=== PATIENT | male | born 1975 | race Caucasian/White ===

== ENCOUNTER 2019-05-03 15:55 | Inpatient (IN) | payer BC ==
[~2019-05-03] VITALS: Ht 175.3 cm; Wt 101.6 kg
[2019-05-03 16:14] VITALS: BP 139/90
[2019-05-03] MEDS ORDERED: VANCOMYCIN PER PHARMACY MC PRN (17:00)
[2019-05-03] MEDS ORDERED: PIP/TAZO PER PHARMACY MC PRN (17:00)
[2019-05-03] MEDS ORDERED: CLIN300C8 PO (17:04)
[2019-05-03] MEDS ORDERED: ONDANSETRON PF 4 MG/2 ML VIAL. IVP PRN (17:15)
[2019-05-03 17:23] LABS: BASO # 0.1 x10^3/uL (0.0-0.2); BASO % 1 % (0-3); EOS % 0 % (0-3); HEMATOCRIT 46.4 % (39.0-53.0); HEMOGLOBIN 15.7 g/dL (13.0-17.5); LYMPH # 3.4 x10^3/uL (1.0-4.8); LYMPH % 28 % (24-48); MEAN CORPUSCULAR HEMOGLOBIN 31 pg (25-35); MEAN CORPUSCULAR HGB CONC 34 g/dL (31-37); MEAN CORPUSCULAR VOLUME 91 fL (79-100); MONO % 8 % (0-9); NEUT # 7.5 x10^3uL (1.8-7.7); NEUT % 62 % (31-73); PLATELET COUNT 243 x10^3/uL (140-400); RED BLOOD COUNT 5.09 x10^6/uL (4.30-5.70); RED CELL DISTRIBUTION WIDTH 13.2 % (11.5-14.5)
[2019-05-03 17:24] LABS: ALBUMIN 3.8 g/dL (3.4-5.0); ALBUMIN/GLOBULIN RATIO 1.2 (1.0-1.7); CALCIUM 9.9 mg/dL (8.5-10.1); CREATININE 0.9 mg/dL (0.7-1.3); GFR 90.8; POTASSIUM 3.5 mmol/L (3.5-5.1); TOTAL BILIRUBIN 0.3 mg/dL (0.2-1.0)
[2019-05-03] MEDS ORDERED: VANCOMYCIN 2 GM in IV NORMAL SALINE 500ML 500 ML IV ONE (17:30)
[2019-05-03] MEDS: ACETAMINOPHEN 325 MG TABLET PO PRN (18:03)
[2019-05-03 19:41] VITALS: BP 148/92
[2019-05-03] MEDS: MORPHINE SULFATE 4 MG/ML DISP.SYRIN. IV PRN (21:23)
[2019-05-03] MEDS: PIPERACILLIN/TAZOBACTAM 4.5 GM in IV NORMAL SALINE 50ML 50 ML IV SCH (21:23)
[2019-05-03] MEDS: LACTOBACILLUS RHAMNOSUS GG 1 CAPSULE. PO SCH (21:27)
[2019-05-03] MEDS ORDERED: DEXTROSE 50% 25 GM / 50ML DISP.SYRIN. IV PRN (21:45)
[2019-05-03 22:37] VITALS: BP 141/76
[2019-05-03 23:00] VITALS: BP 145/75
[2019-05-04] MEDS: VANCOMYCIN 1.5 GM in IV NORMAL SALINE 500ML 500 ML IV SCH ×3 (01:07→18:27)
[2019-05-04] MEDS: PIPERACILLIN/TAZOBACTAM 4.5 GM in IV NORMAL SALINE 50ML 50 ML IV SCH ×3 (05:00→22:14)
[2019-05-04] MEDS: MORPHINE SULFATE 4 MG/ML DISP.SYRIN. IV PRN ×2 (05:00→14:44)
[2019-05-04 06:28] VITALS: BP 137/84
[2019-05-04] MEDS ORDERED: INSULIN LISPRO 300 UNITS/3 ML VIAL. SQ SCH (08:00)
[2019-05-04] MEDS: LACTOBACILLUS RHAMNOSUS GG 1 CAPSULE. PO SCH ×2 (08:40→20:15)
[2019-05-04 09:21] LABS: BASO # 0.1 x10^3/uL (0.0-0.2); BASO % 1 % (0-3); EOS % 0 % (0-3); HEMATOCRIT 46.3 % (39.0-53.0); HEMOGLOBIN 15.5 g/dL (13.0-17.5); LYMPH # 3.2 x10^3/uL (1.0-4.8); LYMPH % 30 % (24-48); MEAN CORPUSCULAR HEMOGLOBIN 31 pg (25-35); MEAN CORPUSCULAR HGB CONC 33 g/dL (31-37); MEAN CORPUSCULAR VOLUME 92 fL (79-100); MONO # 0.7 x10^3/uL (0.0-1.1); MONO % 6 % (0-9); NEUT # 6.9 x10^3uL (1.8-7.7); NEUT % 63 % (31-73); PLATELET COUNT 240 x10^3/uL (140-400); RED BLOOD COUNT 5.02 x10^6/uL (4.30-5.70); RED CELL DISTRIBUTION WIDTH 13.8 % (11.5-14.5); WHITE BLOOD COUNT 10.9 x10^3/uL (4.0-11.0)
[2019-05-04 09:29] LABS: ALBUMIN 3.3 g/dL (3.4-5.0); ALBUMIN/GLOBULIN RATIO 1.1 (1.0-1.7); CALCIUM 9.1 mg/dL (8.5-10.1); CREATININE 0.9 mg/dL (0.7-1.3); GFR 90.8; POTASSIUM 3.9 mmol/L (3.5-5.1); TOTAL BILIRUBIN 0.4 mg/dL (0.2-1.0); TOTAL PROTEIN 6.2 g/dL (6.4-8.2)
[2019-05-04] MEDS: NICOTINE 21MG PATCH. TD SCH (09:31)
[2019-05-04 11:23] VITALS: BP 137/93
[2019-05-04] MEDS ORDERED: DEXTROSE 50% 25 GM / 50ML DISP.SYRIN. IV PRN (13:00)
--- NOTE | 2019-05-04 14:04 | HP ---
ADMIT DATE: 05/03/2019 HISTORY OF PRESENT ILLNESS: The patient is a 44-year-old male patient who was admitted directly from Dr. Cristhian taylor, who is an ENT surgeon who apparently was treating him for infected right ear pain. He was treated with antibiotics that the patient apparently does not know. The patient himself said that he has also some boils on his left thigh and right thigh. The one on the right thigh has started about 3 weeks ago and responded to treatment. The left thigh boil has responded partially. He was treated with antibiotic over the weekend, but the pain in his right ear continued and therefore he came back to the clinic and the abscess was lanced and I am not sure whether the pus was sent for culture and sensitivity, but apparently as he is not responding to oral antibiotic, a decision was made to admit him and to start him on IV antibiotic. He was complaining of severe pain in his right ear, but no chills, rigors or fever. He was admitted and was started on IV vancomycin and Zosyn. PAST MEDICAL HISTORY: Significant for coronary artery disease, status post myocardial infarction with percutaneous coronary intervention stent deployment in 2000. At that time, he was only 24 years old. He is also known to have hypertension and obstructive sleep apnea. PAST SURGICAL HISTORY: Significant for PCI and stent deployment. ALLERGIES: He has no known drug allergies. MEDICATIONS: He is currently on no medication. He apparently was on clindamycin without much improvement. FAMILY HISTORY: He has one older brother and 3 younger brothers that are seemingly healthy. His father is still alive at the age of 73 and apparently has ___ syndrome, fighting multiple ventral incisional hernias. His mother is still alive at age of 68 and survived colon cancer and breast cancer. SOCIAL HISTORY: He is , has a daughter and a son. He smokes a pack a day, does not drink alcohol, smokes marijuana occasionally. 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 REVIEW OF SYSTEMS: The patient denied any blurring of vision, cataract, glaucoma or macular degeneration. Denied any earache, tinnitus or sensorineural deafness. Denied any nosebleeds, stuffy nose or postnasal drip. Denied any sore throat, sore tongue, toothache, hoarseness of voice or difficulty swallowing. Denied any nausea, vomiting, diarrhea or constipation. Denied any hematemesis, melena or hematochezia. Denied any dysuria, frequency or hematuria. Denied any chest pain, shortness of breath, orthopnea, paroxysmal nocturnal dyspnea. Denied any cough, phlegm or hemoptysis. Denied any dizziness, lightheadedness, or vertigo. Denied any chills, rigors or fever. PHYSICAL EXAMINATION: GENERAL: On arrival to the hospital, he looked well and was clearly in no apparent respiratory distress. No pallor, jaundice, cyanosis or thyromegaly. No jugular venous distention. No lower limb edema. VITAL SIGNS: Her heart rate was 105, blood pressure was 139/90, temperature was 98.1, respiratory rate was 20, and oxygen saturation was 98%. HEAD, EYES, NOSE AND THROAT: Showed normocephalic, atraumatic. He has an abscess in the upper end of the right ear pinna and it is fluctuating apparently it was incised yesterday and some pus was drained. I am hoping that it was sent for culture and sensitivity. I did contact the office of Dr. Morrow to find whether that was done other than that his neck was supple with no lymphadenopathy, no thyromegaly. No jugular venous distension, no audible bruits. HEART: Showed normal first and second heart sounds. No gallop or murmur. CHEST: Clear to auscultation. No crepitation or rhonchi. ABDOMEN: Distended, soft, nontender. NEUROLOGIC: He is awake, alert, responding appropriately. All cranial nerves are intact. EXTREMITIES: He moves extremities without difficulty. SKIN: Showed that he has hyperpigmentation of previous boil on the right thigh. The left thigh has also multiple hyperpigmented areas on his back and has an abscess on the right ear pinna. LABORATORY DATA: His lab work on arrival showed a white cell count of 12,000, hemoglobin 15.7, hematocrit 46, MCV 91, and platelet count of 243,000 with normal manual differential. His chemistry showed a serum sodium 143, potassium 3.5, chloride 106, bicarbonate 27, anion gap of 10, BUN 5, creatinine was 0.9, estimated GFR was 91 mL per minute. Her glucose was 84. His lactic acid was only 1.3. Serum calcium was 9.9. Total bilirubin, AST, ALT, alkaline phosphatase were normal. Total protein was 7, albumin was 3.8. PLAN: Plan is to continue with IV vancomycin as well as Zosyn. Continue with pain management and I will check his sed rate, C-reactive protein, and also his hemoglobin A1c and we will decide the further management accordingly. BRINA ZAMUDIO MD DR: YUSEF/lacey JOB#: [id number] / [id number]
[2019-05-04 16:20] VITALS: BP 136/89
[2019-05-04 17:52] LABS: VANC TR 10.5 mcg/mL (10.0-20.0)
[2019-05-04 19:48] VITALS: BP 159/90
[2019-05-04 22:22] VITALS: BP 122/75
--- NOTE | 2019-05-05 00:58 | PN ---
DATE: 05/04/2019 SUBJECTIVE: The patient is resting slightly propped up in bed, in no apparent respiratory distress. He is awake, alert. His pain is much better controlled according to him. He denied any fever, chills, or rigors. PHYSICAL EXAMINATION: GENERAL: When I examined him this afternoon, he looked well and was clearly in no apparent respiratory distress. No pallor, jaundice, cyanosis or thyromegaly. No jugular venous distention. No limb edema. VITAL SIGNS: His heart rate was 86, blood pressure was 137/93. His temperature was 97.6, respiratory rate 20 and oxygen saturation was 99% on room air. HEAD, EYES, EARS, NOSE AND THROAT: Showed normocephalic, atraumatic. He obviously has an abscess on the right ear pinna with surrounding erythema; however, there is no lymphadenopathy. NECK: Supple. HEART: Showed normal first and second heart sounds with no gallop or murmur. CHEST: Clear to auscultation. No crepitation or rhonchi. ABDOMEN: Distended, soft, nontender. NEUROLOGIC: He was awake, alert, responding appropriately. All cranial nerves intact. He moves extremities without difficulty. He ambulates without assistance or assistive devices. LABORATORY DATA: His intake over the last 24 hours and output are incompletely recorded. His lab work this morning showed a serum sodium 139, potassium 3.9, chloride 105, bicarbonate 24, anion gap of 10, BUN 6, creatinine 0.9, estimated GFR was 91 mL per minute. His glucose 183, calcium was 9.1. Total bilirubin, AST, ALT, alkaline phosphatase were normal. Total protein was 6.2, albumin was 3.3. His white cell count is down to 10,900, hemoglobin 15.5, hematocrit 46, MCV 92 and platelet count 240,000. ASSESSMENT: In summary, this is a 44-year-old male patient who basically was admitted with abscess in his right ear pinna. He has also had 2 boils on the right and left thighs that resolved on clindamycin. He has also multiple hyperpigmented areas on his back, indicating also healed probably folliculitis. PLAN: My plan is to check his hemoglobin A1c. We are also going to check his blood sugar before meals and bedtime and fasting lipid profile tomorrow morning. I contacted Dr. Lu office and apparently a culture was sent and the results are still pending. If we have the culture, we can switch him to IV antibiotic and we can place a PICC line and he can be treated as an outpatient. BRINA ZAMUDIO MD DR: YUSEF/lacey JOB#: [id number] / [id number]
[2019-05-05] MEDS: VANCOMYCIN 1.5 GM in IV NORMAL SALINE 500ML 500 ML IV SCH ×3 (02:00→17:50)
[2019-05-05 05:07] LABS: HEMOGLOBIN A1C 5.8 % (4.8-5.6)
[2019-05-05 05:24] VITALS: BP 115/64
[2019-05-05 05:59] LABS: BASO # 0.1 x10^3/uL (0.0-0.2); BASO % 1 % (0-3); EOS % 0 % (0-3); HEMATOCRIT 44.9 % (39.0-53.0); HEMOGLOBIN 14.9 g/dL (13.0-17.5); LYMPH % 40 % (24-48); MEAN CORPUSCULAR HEMOGLOBIN 31 pg (25-35); MEAN CORPUSCULAR HGB CONC 33 g/dL (31-37); MEAN CORPUSCULAR VOLUME 93 fL (79-100); MONO # 0.9 x10^3/uL (0.0-1.1); MONO % 9 % (0-9); NEUT % 50 % (31-73); PLATELET COUNT 215 x10^3/uL (140-400); RED BLOOD COUNT 4.81 x10^6/uL (4.30-5.70); RED CELL DISTRIBUTION WIDTH 13.5 % (11.5-14.5); WHITE BLOOD COUNT 10.1 x10^3/uL (4.0-11.0)
[2019-05-05 06:07] LABS: CREATININE 0.8 mg/dL (0.7-1.3); GFR 104.1; POTASSIUM 3.9 mmol/L (3.5-5.1)
[2019-05-05] MEDS: PIPERACILLIN/TAZOBACTAM 4.5 GM in IV NORMAL SALINE 50ML 50 ML IV SCH ×3 (06:17→21:40)
[2019-05-05] MEDS: NICOTINE 21MG PATCH. TD SCH (08:20)
[2019-05-05] MEDS: LACTOBACILLUS RHAMNOSUS GG 1 CAPSULE. PO SCH ×2 (08:22→20:58)
[2019-05-05 11:10] VITALS: BP 152/90
[2019-05-05 14:41] VITALS: BP 160/108
[2019-05-05] MEDS ORDERED: LIDOCAINE 1% Multi-Dose 20 ML VIAL. IJ ONE (14:45)
[2019-05-05 15:37] VITALS: BP 144/88
--- NOTE | 2019-05-05 17:44 | PN ---
DATE: SUBJECTIVE: The patient is resting, slightly propped up in bed, in no apparent distress. He is concerned that he still has some ____ in the abscess, although all the swelling and redness has largely subsided. He is afebrile. His white cell count is trending down from 12,000 to 10,000. Sed rate and C-reactive protein are normal. I did leave a message with the ENT surgeon to see whether this needs to be drained further and unfortunately, the culture and sensitivity is still pending at the time of this dictation. PHYSICAL EXAMINATION: GENERAL: When I examined him, he looked well and was clearly in no apparent respiratory distress. No pallor, jaundice, cyanosis or thyromegaly. No jugular venous distention. No limb edema. VITAL SIGNS: His heart rate was 89, blood pressure was 152/90, temperature 97.6, respiratory rate was 16, and oxygen saturation was 99%. HEAD, EYES, EARS, NOSE AND THROAT: Showed normocephalic, atraumatic. NECK: Supple. HEART: Normal first and second heart sounds. No gallop or murmur. CHEST: Clear to auscultation. No crepitation or rhonchi. ABDOMEN: Distended, soft, nontender. NEUROLOGIC: He is grossly intact. 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 His intake and output are incompletely recorded. LABORATORY DATA: His lab work this morning showed a white cell count of 10,000, hemoglobin 14.9, hematocrit 45, MCV 93, and platelet count 215,000. His chemistry showed a serum sodium 142, potassium 3.9, chloride 108, bicarbonate 27, anion gap of 7, BUN 11, creatinine 0.8. Estimated GFR was 104 mL per minute. His glucose 118, calcium was 9. His vancomycin trough level is well within therapeutic range. ASSESSMENT: Cellulitis and abscess of the right ear pinna, has also had 2 boils of his right and left thigh that has resolved on clindamycin. PLAN: My plan is to continue with IV antibiotic in the form of vancomycin and Zosyn. Await the result of the culture and sensitivity. I left a message with the ENT surgeon to see whether this needs to be drained more. Meanwhile, his blood sugar, hemoglobin A1c, sed rate and C-reactive protein are all within normal range. BRNIA ZAMUDIO MD DR: YUSEF/lacey JOB#: [id number] / [id number]
[2019-05-05 20:23] VITALS: BP 146/83
[2019-05-05] MEDS: ACETAMINOPHEN 325 MG TABLET PO PRN (20:58)
[2019-05-06] MEDS: VANCOMYCIN 1.5 GM in IV NORMAL SALINE 500ML 500 ML IV SCH ×2 (01:55→09:49)
[2019-05-06 05:30] VITALS: BP 134/84
[2019-05-06] MEDS: PIPERACILLIN/TAZOBACTAM 4.5 GM in IV NORMAL SALINE 50ML 50 ML IV SCH (05:31)
[2019-05-06] MEDS: LACTOBACILLUS RHAMNOSUS GG 1 CAPSULE. PO SCH (08:05)
[2019-05-06] MEDS: NICOTINE 21MG PATCH. TD SCH (08:06)
[2019-05-06 10:41] VITALS: BP 149/50
[2019-05-06] MEDS ORDERED: DAPT500V7 IV (12:14)
--- NOTE | 2019-05-06 13:23 | DS ---
DATE OF DISCHARGE: 05/06/2019 HOSPITAL COURSE: The patient is a 44-year-old male patient who was admitted as a direct admit from Dr. Zavaleta's office, who is an ENT surgeon, as he was apparently treating him for infected right ear pinna. He had received oral antibiotic without much improvement. Other than the abscess in his external ear, he had also other boils on his right thigh and left thigh and that apparently responded to oral antibiotic, but the ear pinna had failed outpatient treatment and therefore he was admitted. We started him on IV antibiotic in the form of vancomycin and Zosyn. Apparently, the abscess was drained at the ENT surgeon's office and samples were sent for culture and sensitivity. Unfortunately, the result of culture and sensitivity still pending at the time of this dictation and therefore we elected to treat him with IV daptomycin as one antibiotic and to place a PICC line and he can come as an outpatient for treatment. Obviously, once we have the culture and sensitivity, we might have to change the antibiotic. We will check also his kidney function and his CK to make sure that he does not have any side effects from the daptomycin. PHYSICAL EXAMINATION: GENERAL: When I saw him today, he looked well and was clearly in no apparent respiratory distress. No pallor, jaundice, cyanosis or thyromegaly. No jugular venous distention. No lower limb edema. VITAL SIGNS: Her heart rate was 85, blood pressure was 149/50, temperature was 98, respiratory rate was 16 and oxygen saturation was 98%. HEENT: Examination of the right ear showed most of the erythema and swelling has largely subsided, except the site of the abscess. I did speak with Dr. Zavaleta and he apparently did not recommend any further incision and drainage and that the patient needs to continue with IV antibiotic and should see him as an outpatient next week. LABORATORY DATA: Showed white cell count of 10,000, hemoglobin 15, hematocrit 45, MCV 93 and platelet count 215,000. His chemistry showed serum sodium 142, potassium 3.9, chloride 108, bicarbonate 27, anion gap of 7, BUN 11, creatinine 0.8, estimated GFR was 104. His glucose has been consistently well within normal range. His calcium was 9. I did even check his sed rate and C-reactive protein. His sed rate was only 1 mm per hour and C-reactive protein was less than 0.5 mg/dL. His triglycerides were 173, total cholesterol was 104, LDL cholesterol 134, VLDL was 34, HDL was 36 and the ratio was 5. DISCHARGE MEDICATIONS: The patient will be discharged home, will continue to receive treatment as an outpatient in the form of daptomycin 500 mg IV daily for 10 days. DISCHARGE INSTRUCTIONS: He did have an appointment to see Dr. Zavaleta, the ENT surgeon. We will check his basic metabolic profile and creatinine kinase on Thursday to make sure that he does not develop rhabdomyolysis, side effect of daptomycin. BRINA ZAMUDIO MD DR: YUSEF/lacey JOB#: [id number] / [id number]
== END 2019-05-06 15:03 | disposition home or self-care (01) | DRG 872 ==
LOC: 1 SOUTH 15:55
PROVIDERS: ADMIT Internal Medicine; ATTEND Internal Medicine
DX: A41.9 Sepsis, unspecified organism (principal); H60.01 Abscess of right external ear; L02.426 Furuncle of left lower limb; H60.11 Cellulitis of right external ear; I25.10 Atherosclerotic heart disease of native coronary artery without angina pectoris; I25.2 Old myocardial infarction; Z95.5 Presence of coronary angioplasty implant and graft; I10 Essential (primary) hypertension; G47.33 Obstructive sleep apnea (adult) (pediatric); Z80.3 Family history of malignant neoplasm of breast; Z80.0 Family history of malignant neoplasm of digestive organs; F17.210 Nicotine dependence, cigarettes, uncomplicated
CPT/HCPCS: 36415; 80048; 80053; 80061; 80202; 82947; 83036; 83605; 85025; 85651; 86140; 87086; J0878; J2270; J2543; J3010; J3370; J7040

== ENCOUNTER 2019-06-21 22:47 | Inpatient (IN) | payer BC ==
[~2019-06-21] VITALS: Ht 170.2 cm; Wt 98.8 kg
[~2019-06-21 22:47] MED LIST: CLIN300C8 PO; DAPT500V7 IV
--- NOTE | 2019-06-21 22:55 | PHYS DOC ---
Past History Past Medical History: Abscess, NV, MRSA, Stroke Past Medical History History of otitis, Smoking: Cigarettes General Adult HPI: HPI: ".. I got a really bad infection or something...... and fever...".. " I seen the doctor up stair.s.. and they were to call in a script.. but it never got called in.. and tonight my the whole side my face swelled up... and I can't even open my eye on the right... I had MRSA... because .. I got some skin sores.. and got admitted... and a PIC line... all that got better... but this has just popped up the last couple days. "... I have had problems with his right ear in the past with infections and did see an ENT jane... That has drained it a few times."..." I am sick..." Patient is a 44 year old male who presents with above hx and complaints of right facial and ear swelling. Patient's right paired orbital area is extremely swollen to the point he cannot open his right eye.. Patient has history of previous MRSA and had a previous admission for MRSA and was treated with IV a ntibiotics and eventual PICC line. Patient is somewhat a poor historian. Patient is not sure of his last tetanus. Patient denies any specific ill contacts or recent travel outside the [place] area. Patient denies any history of immunosuppression or HIV.. Pt. has remote hx of NV at age 24 when he got over heated in baseball game. Patient at that time received a coronary ar neftaly stent with that event in 2000. Patient states he is not currently on antibiotics because the prescription was not called in. Patient states his face swelled up just tonight. Follows with [facility] as a primary. Review of Systems: Review of Systems: Constitutional: Hx. of fever and chills Eyes: Complaints Rt. eye swollen shut tonight HENT: Denies nasal congestion or sore throat Respiratory: Denies cough or shortness of breath Cardiovascular: Denies chest pain or edema GI: Denies abdominal pain, nausea, vomiting, bloody stools or diarrhea : Denies dysuria Musculoskeletal: Denies back pain or joint pain Integument: Denies rash Neurologic: Denies headache, focal weakness or sensory changes Endocrine: Denies polyuria or polydipsia Lymphatic: Has swollen glands Psychiatric: Denies depression or anxiety Heart Score: HEART Score for Chest Pain: HEART Score for Chest Pain Response (Comments) Value History Slighlty/Non-Suspicious 0 ECG Nonspecific Repolarizatio 1 Age < 45 0 Risk Factors 1 or 2 Risk Factors 1 Troponin < Normal Limit 0 Total 2 Risk Factors: Risk Factors: DM, Current or recent (<one month) smoker, HTN, HLP, family history of CAD, obesity. Risk Scores: Score 0 - 3: 2.5% MACE over next 6 weeks - Discharge Home Score 4 - 6: 20.3% MACE over next 6 weeks - Admit for Clinical Observation Score 7 - 10: 72.7% MACE over next 6 weeks - Early Invasive Strategies Family History: Family History: There is family history of an older brother and 3 younger brothers that are all healthy. Father has had a history of incisional hernias. Mother has history of colon cancer and breast cancer Current Medications: Current Meds: See nursing for home meds Allergies: Allergies: Allergies Coded Allergies Type Severity Reaction Last Updated Verified No Known Drug Allergies 05/03/19 No Physical Exam: PE: Constitutional: in acute distress, ill in appearance. [] HENT: Multiple small lesions in scalp, entire right side of face and ear are swollen. Right eye is swollen shut., Right ear now swollen shut ,, oropharynx moist, no oral exudates, nose normal. [ Eyes: PERRLA, EOMI, conjunctiva bilateral injection, no discharge. Right eye is swollen shut but is able to do extraocular movements and see light when eye lip propped open.. Neck: Normal range of motion, has tenderness at angle of mandible, supple, no stridor. Cellulitis and adenopathy Cardiovascular: Tachycardia heart rate regular rhythm, no murmur [] Lungs & Thorax: Bilateral breath sounds equal apex with scattered wheezes on auscultation [] Abdomen: Bowel sounds normal, soft, no tenderness, no masses, no pulsatile masses. Obese. Skin: Warm, dry, no erythema, small areas of cellulitis. Does have a patches drying cellulitis right flank back Back: No tenderness, no CVA tenderness. [] Extremities: No tenderness, no cyanosis, no clubbing, ROM intact, mild ankle edema. [] Neurologic: Alert and oriented X 3, normal motor function, normal sensory function, no focal deficits noted. [] DTRs are +2 patellar and brachial. 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 Psychologic: Affect anxious, at times patient seems to be confused on dates and history, mood depressed EKG: EKG: My interpretation of EKG shows a sinus tachycardia at 105 bpm. Does have bimodal P waves, has contour abnormality in the anterior leads. J-point elevation but there is no contralateral depression [] Radiology/Procedures: Radiology/Procedures: [][address] [address] IMAGING REPORT Signed PATIENT: RICARDO VALDES ACCOUNT: [id number] : 1975 LOCATION: ER AGE: 44 SEX: M EXAM STATUS: REG ER ORD. PHYSICIAN: BRIANDA COHN MD REASON: periorbital cellulitis, RT EYE, OMNI 300, 70ml PROCEDURE: CT HEAD W/CONTRAST CT head without contrast. CT neck with contrast. HISTORY: Right periorbital cellulitis. Contrast: 70 mL Omnipaque [address] head findings: There is mild contrast density within the vessels, this could decrease sensitivity to intact a subtle subarachnoid or subdural hemorrhage separate from the intrinsic contrast density. Small chronic infarct with focal subluxation left parietal lobe. No acute infarct or acute ischemic change evident. No intracranial hemorrhage, mass or hydrocephalus evident. Right parietal scalp soft tissue swelling and edema. Orbits, mastoids and bones are unremarkable. IMPRESSION: No acute intracranial CT abnormality. Right frontal, temporal and parietal scalp soft tissue edema and swelling. Chronic left parietal lobe infarct. CT neck findings: Soft tissue edema and swelling along the right frontal, temporal and parietal scalp and right periorbital soft tissues and right facial soft tissues at the ear which is thickened. No solid mass. No rim-enhancing abscess. The salivary glands, environmental safety specialist spaces, parapharyngeal spaces, sublingual space, submandibular space and thyroid gland are unremarkable. The larynx, pharynx, nasopharynx and oral cavity are unremarkable. No post septal orbital edema, mass or fluid collection. Mild mucosal thickening ethmoid sinuses. No bony fracture evident. IMPRESSION: Right periorbital and facial soft tissue edema and swelling likely cellulitis. No abscess or mass evident. Exposure: One or more of the following individualized dose reduction techniques were utilized for this examination: 1. Automated exposure control 2. Adjustment of the mA and/or kV according to patient size 3. Use of iterative reconstruction technique Electronically signed by: Uday Jacinto MD (06/22/2019 1:39 AM) [id number] DICTATED AND SIGNED BY: UDAY JACINTO MD DATE: 06/22/19 0139 CC: BRIANDA COHN MD; ISATU HESTER ~ Course & Med Decision Making: Course & Med Decision Making Pertinent Labs and Imaging studies reviewed. (See chart for details) Patient admitted to Dr. Singh / Dr. Goel for further eval. and IV antibiotics. Will order PIC line for possible plan of out pt. IV antibiotics. Impression: 1. Extensive right facial and periorbital cellulitis 2. Ethmoid sinusitis 3. Tachycardia with strain pattern 4. Leukocytosis 18 5. Fever 6. History of NV with stent placement 2000 7. Left parietal lobe infarct-old 8. Marijuana and tobacco use 9. History of recurrent MRSA infections 10.History of left parietal lobe infarct 11.UDS + for Methamphetamine [] Dragon Disclaimer: Dragon Disclaimer: This electronic medical record was generated, in whole or in part, using a voice recognition dictation system. Departure Departure: Disposition: 01 HOME/RESIDENCE PRIOR TO ADM Condition: STABLE Referrals: ISATU HESTER (PCP) Dragon Disclaimer This chart was dictated in whole or in part using Voice Recognition software in a busy, high-work load, and often noisy Emergency Department environment. It may contain unintended and wholly unrecognized errors or omissions. Dragon Disclaimer This chart was dictated in whole or in part using Voice Recognition software in a busy, high-work load, and often noisy Emergency Department environment. It may contain unintended and wholly unrecognized errors or omissions. Dragon Disclaimer This chart was dictated in whole or in part using Voice Recognition software in a busy, high-work load, and often noisy Emergency Department environment. It may contain unintended and wholly unrecognized errors or omissions. BRIANDA COHN MD Jun 21, 2019 22:55
[2019-06-21] MEDS ORDERED: VANCOMYCIN 1 GM in IV NORMAL SALINE 250ML 250 ML IV ONE (23:45)
[2019-06-21 23:51] LABS: BASO # 0.1 x10^3/uL (0.0-0.2); BASO % 1 % (0-3); EOS # 0.4 x10^3/uL (0.0-0.7); EOS % 2 % (0-3); HEMATOCRIT 43.9 % (39.0-53.0); HEMOGLOBIN 14.6 g/dL (13.0-17.5); LYMPH # 2.3 x10^3/uL (1.0-4.8); LYMPH % 13 % (24-48); MEAN CORPUSCULAR HEMOGLOBIN 31 pg (25-35); MEAN CORPUSCULAR HGB CONC 33 g/dL (31-37); MEAN CORPUSCULAR VOLUME 92 fL (79-100); MONO # 1.7 x10^3/uL (0.0-1.1); MONO % 10 % (0-9); NEUT # 13.5 x10^3uL (1.8-7.7); NEUT % 75 % (31-73); PLATELET COUNT 238 x10^3/uL (140-400); RED BLOOD COUNT 4.79 x10^6/uL (4.30-5.70); RED CELL DISTRIBUTION WIDTH 13.2 % (11.5-14.5)
[2019-06-21 23:57] LABS: CALCIUM 9.5 mg/dL (8.5-10.1); CREATININE 0.9 mg/dL (0.7-1.3); GFR 90.8; POTASSIUM 4.1 mmol/L (3.5-5.1)
[2019-06-22] MEDS ORDERED: IV RINGERS SOLUTION,LACTATED 1,000 ML IV SCH
[2019-06-22] MEDS ORDERED: IV NORMAL SALINE 50ML 50 ML ONE (00:05)
[2019-06-22] MEDS ORDERED: cefTRIAXone SODIUM 1 GM VIAL ONE (00:05)
[2019-06-22] MEDS ORDERED: VANCOMYCIN 1 GM VIAL. ONE ×2 (00:05→01:17)
[2019-06-22] MEDS ORDERED: IV NORMAL SALINE 250ML 250 ML ONE (00:05)
[2019-06-22 00:11] LABS: ALBUMIN 3.7 g/dL (3.4-5.0); DIRECT BILIRUBIN 0.1 mg/dL (0.0-0.2); MAGNESIUM 2.1 mg/dL (1.8-2.4); TOTAL BILIRUBIN 0.5 mg/dL (0.2-1.0)
[2019-06-22 00:13] LABS: % BANDS 4 % (0-9); % EOS 2 % (0-5); % LYMPHS 20 % (24-48); % MONOS 8 % (0-10); % SEGS 66 % (35-66)
[2019-06-22 00:14] LABS: PLT ESTIMATE ADEQUATE (ADEQUATE)
[2019-06-22] MEDS ORDERED: IOHEXOL 300 MG/ML 75 ML VIAL. IV ONE (00:15)
[2019-06-22] MEDS ORDERED: ACETAMINOPHEN 500 MG TABLET PO ONE ×2 (00:19→04:15)
[2019-06-22] MEDS ORDERED: MORPHINE SULFATE 10 MG/ML SYRINGE. ONE (00:24)
[2019-06-22] MEDS ORDERED: CONTRAST GIVEN MC PRN (00:30)
[2019-06-22] MEDS: MORPHINE SULFATE 10 MG/ML SYRINGE. SQ PRN ×2 (00:30→09:46)
[2019-06-22] MEDS ORDERED: DIPH,PERTUSS(ACELL),TET VAC/PF 0.5 ML SYRINGE. VAX IM ONE (00:30)
[2019-06-22] MEDS ORDERED: ONDANSETRON PF 4 MG/2 ML VIAL. IVP PRN ×2 (00:45→15:30)
[2019-06-22] MEDS ORDERED: ACETAMINOPHEN 325 MG TABLET PO PRN (00:45)
[2019-06-22 00:49] LABS: SEDIMENTATION RATE 10 (0-15)
[2019-06-22] MEDS ORDERED: VANCOMYCIN 2 GM in IV NORMAL SALINE 500ML 500 ML IV ONE (01:00)
[2019-06-22] MEDS ORDERED: IV NORMAL SALINE 500ML 500 ML ONE (01:17)
--- NOTE | 2019-06-22 01:42 | RAD ---
CT head without contrast. CT neck with contrast. HISTORY: Right periorbital cellulitis. Contrast: 70 mL Omnipaque [address] head findings: There is mild contrast density within the vessels, this could decrease sensitivity to intact a subtle subarachnoid or subdural hemorrhage separate from the intrinsic contrast density. Small chronic infarct with focal subluxation left parietal lobe. No acute infarct or acute ischemic change evident. No intracranial hemorrhage, mass or hydrocephalus evident. Right parietal scalp soft tissue swelling and edema. Orbits, mastoids and bones are unremarkable. IMPRESSION: No acute intracranial CT abnormality. Right frontal, temporal and parietal scalp soft tissue edema and swelling. Chronic left parietal lobe infarct. CT neck findings: Soft tissue edema and swelling along the right frontal, temporal and parietal scalp and right periorbital soft tissues and right facial soft tissues at the ear which is thickened. No solid mass. No rim-enhancing abscess. The salivary glands, sheet metal helper spaces, parapharyngeal spaces, sublingual space, submandibular space and thyroid gland are unremarkable. The larynx, pharynx, nasopharynx and oral cavity are unremarkable. No post septal orbital edema, mass or fluid collection. Mild mucosal thickening ethmoid sinuses. No bony fracture evident. IMPRESSION: Right periorbital and facial soft tissue edema and swelling likely cellulitis. No abscess or mass evident. Exposure: One or more of the following individualized dose reduction techniques were utilized for this examination: 1. Automated exposure control 2. Adjustment of the mA and/or kV according to patient size 3. Use of iterative reconstruction technique Electronically signed by: Abhishek Burgos MD (06/22/2019 1:39 AM) [id number]
[2019-06-22 03:16] LABS: BACTERIA,URINE 0 /HPF (0-FEW); BILIRUBIN,URINE NEG (NEG); CLARITY,URINE CLEAR; COLOR,URINE YELLOW; GLUCOSE,URINE NEG (NEG); NITRITE,URINE NEG (NEG); RBC,URINE 0 /HPF (0-2); SQUAMOUS EPITHELIAL CELL,UR OCC /LPF; UROBILINOGEN,URINE 0.2 mg/dL (0.2 mg/dL); WBC,URINE OCC /HPF (0-4)
[2019-06-22 03:23] LABS: BARBITURATES NEG (NEG); BENZODIAZEPINES NEG (NEG); CANNABINOIDS NEG (NEG); COCAINE NEG (NEG); METHADONE NEG (NEG); OPIATES POS (NEG); PHENCYCLIDINE NEG (NEG)
[2019-06-22 03:26] LABS: AMPHETAMINE/METHAMPHETAMINE POS (NEG)
[2019-06-22] MEDS: IV RINGERS SOLUTION,LACTATED 1,000 ML IV SCH ×3 (03:30→06:00)
--- NOTE | 2019-06-22 05:45 | EKG ---
[address] [address] Test Date: 2019-06-21 Test Time: 23:51:44 Pat Name: RICARDO VALDES Department: Room: 120 A Gender: M Assistant: : 1975 Requested By: BRIANDA COHN Order Number: [id number] Reading MD: Nakul Fermin Measurements Intervals [place] Rate: 105 P: 59 ME: 148 QRS: 86 QRSD: 94 T: 42 QT: 298 QTc: 397 Interpretive Statements SINUS TACHYCARDIA LEFT ATRIAL ABNORMALITY LOW LIMB LEAD VOLTAGE LEFT VENTRICULAR HYPERTROPHY WITH REPOLARIZATION ABNORMALITIES ABNORMAL ECG RI6.02 No previous ECG available for comparison Electronically Signed On 06-22-2019 8:49:03 CDT by Nakul Fermin
[2019-06-22 06:13] VITALS: BP 144/88
[2019-06-22] MEDS: VANCOMYCIN PER PHARMACY MC PRN (07:40)
[2019-06-22] MEDS ORDERED: IPRATRPIUM/ALBUTEROL 0.5/2.5MG 3 ML NEBU. NEB PRN (07:45)
[2019-06-22] MEDS ORDERED: ALBUTEROL SULFATE 8GM INHALER. INH PRN (07:45)
[2019-06-22] MEDS ORDERED: IPRATRPIUM/ALBUTEROL 0.5/2.5MG 3 ML NEBU. NEB SCH (08:00)
[2019-06-22] MEDS ORDERED: VANCOMYCIN 1 GM in IV NORMAL SALINE 250ML 250 ML IV SCH (09:00)
[2019-06-22 09:10] LABS: CREATININE 0.6 mg/dL (0.7-1.3); POTASSIUM 3.5 mmol/L (3.5-5.1)
[2019-06-22] MEDS: VANCOMYCIN 1.5 GM in IV NORMAL SALINE 500ML 500 ML IV SCH ×2 (09:47→17:58)
[2019-06-22 10:25] VITALS: BP 142/85
[2019-06-22] MEDS: ACETAMINOPHEN 325 MG TABLET PO PRN (12:24)
[2019-06-22] MEDS ORDERED: PIP/TAZO PER PHARMACY MC PRN (15:15)
[2019-06-22] MEDS: IV NORMAL SALINE 1,000ML 1,000 ML IV SCH (15:45)
[2019-06-22 15:51] VITALS: BP 146/96
[2019-06-22] MEDS: PIPERACILLIN/TAZOBACTAM 4.5 GM in IV NORMAL SALINE 50ML 50 ML IV SCH (16:12)
[2019-06-22] MEDS: oxyCODONE IR 5 MG TABLET PO PRN ×2 (16:34→20:29)
--- NOTE | 2019-06-22 17:14 | HP ---
ADMIT DATE: 06/22/2019 HISTORY OF PRESENT ILLNESS: The patient is a 44-year-old male patient who came to the Emergency Room this morning. He apparently was seen by the ENT surgeon and that apparently has drained his right ear abscess and he has also what seemed to be like cellulitis on the right muslim and was given a prescription, but for some reason he did not get the antibiotic and therefore, the patient came to the Emergency Room with swelling of the right periorbital area to the point that he cannot open his eyes. He has a history of previous MRSA and had a previous admission for MRSA and was treated with IV antibiotic and eventually a PICC line. He was not sure of his last tetanus. The patient denied any specific ill contact or recent travel outside the [place] area. He denied any history of immunosuppression or HIV. He has a remote history of myocardial infarction at the age of 24, when he got overheated in a baseball game. He did receive coronary artery stent with that event in 2000. The patient states he is following with Dr. Funk as his primary care physician. He was investigated in the Emergency Room. His white cell count was found to be high at 18,000; however, his chemistry was unremarkable and was admitted with right periorbital cellulitis. He has had blood cultures done and was started on antibiotic in the form of vancomycin, ceftriaxone as well as Flagyl as well as pain management he received and was started on IV fluid. PAST MEDICAL HISTORY: Significant for coronary artery disease, status post myocardial infarction with percutaneous coronary intervention and stent deployment in 2000. At that time, he was only 24 years old. He is also known to have hypertension and obstructive sleep apnea. PAST SURGICAL HISTORY: Significant for PCI with stent deployment and also incision and drainage of his right ear abscess. ALLERGIES: He has no known drug allergies. FAMILY HISTORY: He has one older brother and 3 younger brothers that are seemingly healthy. His father is still alive at the age of 73 and apparently has an Jocelyn syndrome, fighting multiple ventral incisional hernias. His mother is still alive at the age of 68 and survived colon cancer and breast cancer. SOCIAL HISTORY: , has a daughter and a son. He smokes a pack a day, does not drink alcohol, smokes marijuana occasionally. 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 MEDICATIONS: Apparently, he is not on any medication at home. PHYSICAL EXAMINATION: GENERAL: On arrival to the Emergency Room this morning, he was clearly markedly swollen right periorbital area that is erythematous with erythema on the right muslim, but there is no jaundice, cyanosis or thyromegaly. No jugular venous distention. No limb edema. VITAL SIGNS: His heart rate was 91, blood pressure was 144/88, temperature was 99, respiratory rate was 20, and oxygen saturation was 98%. HEAD, EYES, EARS, NOSE AND THROAT: Showed he is normocephalic, has marked right periorbital edema and cellulitis involving the right muslim and also the right periorbital area. His right ear seems to be well within normal range. NECK: Supple. HEART: Showed normal first and second heart sounds. No gallop, rub or murmur. CHEST: Clear to auscultation. No crepitation or rhonchi. ABDOMEN: Distended, soft, nontender. NEUROLOGIC: He was awake, alert, responding appropriately. All cranial nerves are intact. He is unable to open his right eye because of marked periorbital swelling. Otherwise, he is able to move all his extremities and ambulates without assistance or assistive devices. LABORATORY DATA: His lab work done this morning showed a white cell count of 18,000, hemoglobin 14.6, hematocrit 44, MCV 92, and a platelet count of 238,000 with a manual differential showed 75% polymorphs, 13% lymphocytes and 10% monocytes. His chemistry showed serum sodium 138, potassium was 4.1, chloride 101, bicarbonate 27, anion gap of 10, BUN 18, creatinine 0.9, estimated GFR was 90 mL per minute. His glucose was 107, calcium was 9.5, magnesium was 2.1. Total bilirubin, AST, ALT, alkaline phosphatase were normal. His total protein 7, albumin was 3.7. His TSH was normal at 0.516. His prothrombin time, INR and aPTT normal. Urinalysis was essentially unremarkable. Toxic screen was positive for opiates as well as amphetamine, methamphetamine. In summary, this is a 44-year-old male patient who was admitted with facial periorbital cellulitis. He did have a CT scan of the head as well as CT scan of the soft tissue of the neck. CT scan of the head showed that there is mild contrast density within the vessels, this could decrease sensitivity to intact or subtle subarachnoid or subdural hemorrhage separate from intrinsic contrast density, small chronic infarct with focal subluxation, left parietal lobe. No acute infarct or acute ischemic changes evident. No intracranial hemorrhage, mass, or hydrocephalus. Has right parietal scalp soft tissue swelling and edema. Orbits, mastoids and bones are unremarkable. In summary, there is no acute intracranial CT abnormality. He has right frontal, temporal and parietal scalp soft tissue edema and swelling, chronic left parietal lobe infarct and CT scan of the neck, soft tissue edema and swelling along the right frontal, temporal and parietal scalp and the right periorbital soft tissue and right facial soft tissue at the ear, which is thickened. No solid mass. No rim enhancing abscess. The salivary glands, internet assessor spaces, parapharyngeal spaces, sublingual spaces, submandibular space and thyroid gland are unremarkable. The larynx, pharynx, nasopharynx and oral cavity are unremarkable. No ____ orbital edema, mass or fluid collection. Mild mucosal thickening of ethmoid sinuses. No bony fractures evident. So, my plan is to switch him to Zosyn and discontinue the Rocephin and Flagyl. Continue with vancomycin. Continue with pain management and await the result of the culture and sensitivity. BRINA ZAMUDIO MD DR: YUSEF/lacey JOB#: [id number] / [id number]
[2019-06-22] MEDS ORDERED: NO HOME MEDS (19:01)
[2019-06-22 19:15] VITALS: BP 128/69
[2019-06-22] MEDS: LACTOBACILLUS RHAMNOSUS GG 1 CAPSULE. PO SCH (20:19)
[2019-06-22] MEDS: MORPHINE SULFATE 4 MG/ML DISP.SYRIN. IV PRN (20:34)
[2019-06-23] MEDS: PIPERACILLIN/TAZOBACTAM 4.5 GM in IV NORMAL SALINE 50ML 50 ML IV SCH ×4 (00:15→23:23)
[2019-06-23] MEDS: MORPHINE SULFATE 4 MG/ML DISP.SYRIN. IV PRN ×6 (00:16→21:17)
[2019-06-23 01:57] LABS: BASO # 0.1 x10^3/uL (0.0-0.2); BASO % 1 % (0-3); EOS # 0.3 x10^3/uL (0.0-0.7); EOS % 2 % (0-3); HEMATOCRIT 43.5 % (39.0-53.0); HEMOGLOBIN 14.8 g/dL (13.0-17.5); LYMPH # 2.8 x10^3/uL (1.0-4.8); LYMPH % 15 % (24-48); MEAN CORPUSCULAR HEMOGLOBIN 31 pg (25-35); MEAN CORPUSCULAR HGB CONC 34 g/dL (31-37); MEAN CORPUSCULAR VOLUME 91 fL (79-100); MONO # 1.4 x10^3/uL (0.0-1.1); MONO % 7 % (0-9); NEUT # 14.6 x10^3uL (1.8-7.7); NEUT % 76 % (31-73); PLATELET COUNT 221 x10^3/uL (140-400); RED BLOOD COUNT 4.77 x10^6/uL (4.30-5.70); RED CELL DISTRIBUTION WIDTH 13.1 % (11.5-14.5); WHITE BLOOD COUNT 19.2 x10^3/uL (4.0-11.0)
[2019-06-23 02:00] LABS: ALBUMIN 3.3 g/dL (3.4-5.0); CALCIUM 9.3 mg/dL (8.5-10.1); CREATININE 0.8 mg/dL (0.7-1.3); GFR 104.1; POTASSIUM 3.5 mmol/L (3.5-5.1); TOTAL BILIRUBIN 0.6 mg/dL (0.2-1.0); TOTAL PROTEIN 6.7 g/dL (6.4-8.2); VANC TR 8.1 mcg/mL (10.0-20.0)
[2019-06-23] MEDS: VANCOMYCIN 1.5 GM in IV NORMAL SALINE 500ML 500 ML IV SCH (02:06)
[2019-06-23] MEDS: VANCOMYCIN PER PHARMACY MC PRN (03:44)
[2019-06-23 05:50] VITALS: BP 149/83
[2019-06-23] MEDS: LACTOBACILLUS RHAMNOSUS GG 1 CAPSULE. PO SCH ×2 (07:28→21:16)
[2019-06-23] MEDS: oxyCODONE IR 5 MG TABLET PO PRN ×5 (07:28→23:22)
[2019-06-23] MEDS: IV NORMAL SALINE 1,000ML 1,000 ML IV SCH ×2 (07:28→11:45)
[2019-06-23] MEDS ORDERED: VANCOMYCIN 1.75 GM in IV NORMAL SALINE 500ML 500 ML IV SCH ×2 (10:00→23:30)
[2019-06-23 11:25] VITALS: BP 130/83
--- NOTE | 2019-06-23 12:31 | PN ---
DATE: 06/23/2019 SUBJECTIVE: The patient is resting, slightly propped up in bed, in no apparent distress. The swelling around his right eye is much less now. He can open his eyes. The erythema and redness around his right side of the face and frontal and temporal scalp area is slightly better. PHYSICAL EXAMINATION: GENERAL: When I examined him, he looked well and was clearly in no apparent respiratory distress. No pallor, jaundice, cyanosis or thyromegaly. No jugular venous distention. No lower limb edema. VITAL SIGNS: His heart rate was 84, blood pressure was 149/83, temperature was 99.4, respiratory rate was 22, and oxygen saturation was 98%. HEAD, EYES, EARS, NOSE AND THROAT: Showed normocephalic. The erythema extends right side of the face around his right eye in the supraorbital area, frontal and parietal scalp area, but there is no discrete abscess at least on the CT scan done yesterday. NECK: Supple. HEART: Showed normal first and second heart sounds. No gallop or murmur. CHEST: Clear to auscultation. No crepitation or rhonchi. ABDOMEN: Distended, soft, nontender. No guarding or rigidity. No organomegaly. All hernial orifices intact. Bowel sounds normal. NEUROLOGIC: He was awake, alert, responding appropriately. All cranial nerves are intact. He moves extremities without difficulty. His intake was 1215, output was recorded. LABORATORY DATA: His lab work this morning showed his white cell count was 19,200, hemoglobin 14.8, hematocrit 43.5, MCV 91, and platelet count 221,000 with normal manual differential. His chemistry showed a serum sodium 137, potassium 3.5, chloride 103, bicarbonate 22, anion gap of 12, BUN 8, creatinine 0.8, estimated GFR was 104 mL per minute. His glucose was 1.07, calcium was 9.3. Total bilirubin, AST, ALT, alkaline phosphatase were normal. Total protein 6.7, albumin was 3.3. Urinalysis was unremarkable. Toxic screen was positive for opiates. His vancomycin trough level was low at 8.1 and his COVID-19 by PCR was negative. ASSESSMENT: Right-sided facial and periorbital cellulitis. Other medical problems include coronary artery disease, status post PCI with stent deployment, hypertension, obstructive sleep apnea as well as nicotine abuse. PLAN: My plan is to obviously continue with the antibiotics. His blood cultures are so far negative. I will arrange for him to have a PICC line placed and we will probably arrange for him to have a PICC line placed and he can be discharged home to continue on antibiotic as an outpatient. BRINA ZAMUDIO MD DR: YUSEF/lacey JOB#: [id number] / [id number]
[2019-06-23 16:30] VITALS: BP 146/89
[2019-06-23] MEDS: VANCOMYCIN 1.75 GM in IV NORMAL SALINE 500ML 500 ML IV SCH (18:13)
[2019-06-23 19:03] VITALS: BP 130/74
[2019-06-23] MEDS: ACETAMINOPHEN 325 MG TABLET PO PRN (23:21)
[2019-06-24] MEDS: VANCOMYCIN 1.75 GM in IV NORMAL SALINE 500ML 500 ML IV SCH ×2 (02:03→10:19)
[2019-06-24] MEDS: IV NORMAL SALINE 1,000ML 1,000 ML IV SCH (02:05)
[2019-06-24] MEDS: MORPHINE SULFATE 4 MG/ML DISP.SYRIN. IV PRN (03:18)
[2019-06-24 06:01] VITALS: BP 156/99
[2019-06-24] MEDS: oxyCODONE IR 5 MG TABLET PO PRN ×2 (06:33→10:19)
[2019-06-24] MEDS: ACETAMINOPHEN 325 MG TABLET PO PRN (06:33)
[2019-06-24 06:36] LABS: HEMATOCRIT 43.8 % (39.0-53.0); HEMOGLOBIN 14.8 g/dL (13.0-17.5); RED BLOOD COUNT 4.79 x10^6/uL (4.30-5.70); RED CELL DISTRIBUTION WIDTH 13.2 % (11.5-14.5); WHITE BLOOD COUNT 15.8 x10^3/uL (4.0-11.0)
[2019-06-24 06:49] LABS: ALBUMIN/GLOBULIN RATIO 0.9 (1.0-1.7); CALCIUM 9.6 mg/dL (8.5-10.1); CREATININE 0.7 mg/dL (0.7-1.3); GFR 121.4; POTASSIUM 3.7 mmol/L (3.5-5.1); TOTAL BILIRUBIN 0.4 mg/dL (0.2-1.0); TOTAL PROTEIN 6.5 g/dL (6.4-8.2)
[2019-06-24] MEDS: LACTOBACILLUS RHAMNOSUS GG 1 CAPSULE. PO SCH (07:53)
[2019-06-24] MEDS: PIPERACILLIN/TAZOBACTAM 4.5 GM in IV NORMAL SALINE 50ML 50 ML IV SCH (07:54)
[2019-06-24 09:51] LABS: VANC TR 12.1 mcg/mL (10.0-20.0)
[2019-06-24 12:00] VITALS: BP 136/91
[2019-06-24] MEDS ORDERED: OXYC5TAB4 PO (13:35)
[2019-06-24] MEDS ORDERED: DAPT500V7 IV (13:35)
[2019-06-24] MEDS ORDERED: MUPI15CR8 TP (13:44)
--- NOTE | 2019-06-24 14:05 | DS ---
DATE OF DISCHARGE: 06/24/2019 HOSPITAL: COURSE: The patient is a 44-year-old male patient who was admitted at this time with right sided facial cellulitis as well as periorbital cellulitis. He apparently was seen by his primary care physician, was given a prescription for oral antibiotic. However, he came to the Emergency Room because the swelling of his right periorbital area has increased to the point that he cannot open his eyes. He has a history of previous MRSA and had a previous admission for MRSA and was treated with IV antibiotic as an outpatient. He was evaluated. White cell count was found to be high at 18,000 on admission and his CT scan showed that he has right frontotemporal and parietal scalp soft tissue edema and swelling, chronic left parietal lobe infarct. He has also CT scan of the neck, showed soft tissue edema and swelling along the right frontotemporal and parietal scalp and the right periorbital soft tissue and the right facial soft tissue at the ear, which is thickened. There are no solid masses. No rim enhancing abscess of the salivary glands. Nursing Informatics Clinical Analyst spaces, parapharyngeal spaces, sublingual spaces, submandibular spaces and thyroid glands are unremarkable. The larynx, pharynx, nasopharynx and oral cavity are unremarkable. No post-septal orbital edema, mass or fluid collection. Mild mucosal thickening of ethmoid sinuses. No bony fractures evident, was initially treated with IV vancomycin and Zosyn, has had a PICC line placed yesterday and a decision was made to switch him to daptomycin 500 mg IV daily as his swelling has largely subsided as well as the erythema. Periorbital swelling, in particular, has improved, although not yet completely. He is now able to open his eyes. PHYSICAL EXAMINATION: GENERAL: When I saw him this afternoon, he looked well and was clearly in no apparent respiratory distress. No pallor, jaundice, cyanosis or thyromegaly. No jugular venous distention. No limb edema. VITAL SIGNS: His heart rate was 87, blood pressure was 136/91, temperature was 98.7, respiratory rate was 20, and oxygen saturation was 97% on room air. HEAD, EYES, EARS, NOSE AND THROAT: Showed normocephalic, atraumatic. NECK: Supple. HEART: Showed normal first and second heart sounds. No gallop, rub or murmur. CHEST: Clear to auscultation. No crepitation or rhonchi. ABDOMEN: Distended, soft, and nontender. No guarding or rigidity. No organomegaly. All hernial orifice intact. Bowel sounds normal. NEUROLOGIC: He is awake, alert, responding appropriately. All cranial nerves intact. EXTREMITIES: He moves extremities without difficulty. SKIN: Examination of the skin of the face and the periorbital area showed mostly the swelling is resolving. Erythema has mostly faded away, especially in the right side of the face. His intake over the last 24 hours was 2430 and output was 800. LABORATORY DATA: As of this morning, his white cell count was 15,800, hemoglobin 15, hematocrit 44, MCV 92, and platelet count 230,000. His serum sodium was 138, potassium 3.7, chloride 105, bicarbonate 25, anion gap of 8, BUN 9, creatinine 0.7, estimated GFR was 121 mL per minute. His glucose 114, calcium 9.6. Total bilirubin, AST, ALT, alkaline phosphatase were normal. Total protein 6.5, albumin was 3. His COVID-19 by PCR was negative. Toxic screen was positive. His vancomycin trough level was 12. He was discharged to continue on daptomycin 500 mg IV daily for 10 days and mupirocin applied topically 3 times a day for 10 days and oxycodone immediate release 5 mg every 4 hours. FINAL DISCHARGE DIAGNOSES: Right-sided facial cellulitis and right sided periorbital cellulitis, has a history also of stroke before, has had coronary artery disease, status post myocardial infarction with status post percutaneous coronary intervention stent deployment, hypertension, obstructive sleep apnea and apparently also has an old infarct. He has chronic left parietal lobe infarct. BRINA ZAMUDIO MD DR: YUSEF/lacey JOB#: [id number] / [id number]
== END 2019-06-24 13:45 | disposition home or self-care (01) | DRG 872 ==
LOC: ER 22:47 → 1 SOUTH 06-22 00:30
PROVIDERS: ADMIT Internal Medicine; ATTEND Hospitalist
PROC: 05HY33Z Insertion of Infusion Device into Upper Vein, Percutaneous Approach (ICD-10-PCS; principal; 2019-06-23)
DX: A41.9 Sepsis, unspecified organism (principal); L03.213 Periorbital cellulitis; L03.211 Cellulitis of face; F17.210 Nicotine dependence, cigarettes, uncomplicated; I10 Essential (primary) hypertension; I25.10 Atherosclerotic heart disease of native coronary artery without angina pectoris; J32.2 Chronic ethmoidal sinusitis; G47.33 Obstructive sleep apnea (adult) (pediatric); R00.0 Tachycardia, unspecified; F15.90 Other stimulant use, unspecified, uncomplicated; F11.90 Opioid use, unspecified, uncomplicated; Z20.828 Contact with and (suspected) exposure to other viral communicable diseases; I25.2 Old myocardial infarction; Z86.73 Personal history of transient ischemic attack (TIA), and cerebral infarction without residual deficits; Z80.0 Family history of malignant neoplasm of digestive organs; Z80.3 Family history of malignant neoplasm of breast; Z86.14 Personal history of Methicillin resistant Staphylococcus aureus infection; Z95.5 Presence of coronary angioplasty implant and graft
CPT/HCPCS: 36415; 36569; 70460; 70491; 80048; 80053; 80076; 80202; 80307; 81001; 82550; 83605; 83690; 83735; 83880; 84443; 84484; 85007; 85025; 85027; 85610; 85651; 85730; 87040; 87635; 93005; 96365; 96366; 96367; J0696; J2270; J2543; J3370; J3490; J7040; J7120; J7613; Q9967; 99285-25; J7030